=== PATIENT | female | born 1995 | race Caucasian/White ===

== ENCOUNTER 2021-11-14 17:13 | Emergency (ER) | payer OTHER ==
[~2021-11-14] VITALS: Ht 167.6 cm; Wt 90.7 kg
[2021-11-14] MEDS ORDERED: CRUTCHES XX (18:35)
[2021-11-14] MEDS ORDERED: NAPROSYN500 MG PO (18:35)
== END 2021-11-14 18:54 | disposition home or self-care (01) ==
LOC: ED 17:13
DX: S92.354A Nondisplaced fracture of fifth metatarsal bone, right foot, initial encounter for closed fracture (principal); Z88.0 Allergy status to penicillin; Z88.2 Allergy status to sulfonamides; X50.1XXA Overexertion from prolonged static or awkward postures, initial encounter
CPT/HCPCS: 73610; 73630; 99283-25